=== PATIENT | male | born 1950 | race Caucasian/White ===

== ENCOUNTER 2018-11-23 10:23 | Emergency (ER) | payer MEDICARE ==
[~2018-11-23] VITALS: Ht 162.6 cm; Wt 61.2 kg
[2018-11-23] MEDS ORDERED: BACITRACIN ZINC 0.9GM TP ONE ×2 (10:50→11:00)
== END 2018-11-23 12:13 | disposition home or self-care (01) ==
LOC: ER 10:23
DX: S00.81XA Abrasion of other part of head, initial encounter (principal); S60.512A Abrasion of left hand, initial encounter; W03.XXXA Other fall on same level due to collision with another person, initial encounter; Y92.128 Other place in nursing home as the place of occurrence of the external cause; J44.9 Chronic obstructive pulmonary disease, unspecified; H54.7 Unspecified visual loss
CPT/HCPCS: 99283